=== PATIENT | female | born 1950 | race Caucasian/White ===

== ENCOUNTER 2018-12-27 06:43 | Day surgery (SDC) | payer MEDICARE ==
[~2018-12-27] VITALS: Ht 157.5 cm; Wt 73.8 kg
[~2018-12-27 06:43] MED LIST: ASPI81TA85 PO; DILT1CAP9 PO; FENO145T13 PO; LEVO50TA5 PO; LIDOCAINE 2% W/EPIN INJ 20ML **PRES FREE As Ordered ONE; LISI20TA PO; MAGN64TASA PO; METF10004 PO; METO1TAB33 PO; POVIDONE-IODINE 5% OPHTH PREP SOL 30ML As Ordered ONE; SIMV40TA2 PO; TETRACAINE 0.5% OPHTH SOLN 4ML As Ordered ONE; TOBRADEX OPHTH OINT 3.5 GM As Ordered ONE; ZYLO300T6 PO
[2018-12-27] MEDS ORDERED: LIDOCAINE 3.5 % 1ML OPHTH TOPICAL GEL OU ONE (07:00)
[2018-12-27] MEDS ORDERED: MIDAZOLAM INJ 2 MG/2 ML VIAL (J2250) As Ordered ONE (07:43)
[2018-12-27] MEDS ORDERED: fentaNYL 100 MCG/2 ML INJECTION (J3010) As Ordered ONE (07:43)
[2018-12-27] MEDS ORDERED: PROPOFOL 200 MG/20 ML VIAL As Ordered ONE (07:44)
[2018-12-27] MEDS ORDERED: ONDANSETRON 4MG/2ML VIAL (J2405) As Ordered ONE (08:19)
[2018-12-27 09:15] VITALS: BP 148/69
[2018-12-27] MEDS ORDERED: ACETAMINOPHEN TAB 650MG DOSE (2X325MG) PO PRN (09:15)
[2018-12-27] MEDS ORDERED: ONDANSETRON 4MG/2ML VIAL (J2405) IV PRN (09:15)
[2018-12-27] MEDS ORDERED: LR 1,000 ML IV SCH (09:15)
--- NOTE | 2018-12-27 10:25 | RO ---
DATE OF PROCEDURE: 12/27/2018 PREOPERATIVE DIAGNOSIS: Bilateral upper lid dermatochalasis. POSTOPERATIVE DIAGNOSIS: Bilateral upper lid dermatochalasis. PROCEDURE PERFORMED: Bilateral upper lid blepharoplasty. SURGEON: Jessica Shields MD ANIMAL CARE ATTENDANT: ANESTHESIA: DESCRIPTION OF PROCEDURE: Patient was prepped and draped in the usual fashion. The area of skin to be excised was marked with a skin scribe on each upper lid. The right upper lid was attended to first. 2% lidocaine with epinephrine was injected subcutaneously in the area, and then the cautery was used to make incision through the skin on a cut mode. Any bleeding was controlled with the cautery. The medial fat pad was opened up, and fat was easily expressed and removed. The lid was then closed. The wound was closed with a running #6-0 nylon suture. Identical procedure was done on the other side, on the opposite side. Patient tolerated the procedure well and went to recovery room in stable condition.
== END 2018-12-27 09:43 | disposition home or self-care (01) ==
LOC: M SDC 06:43
PROVIDERS: ATTEND Ophthalmology
DX: H02.834 Dermatochalasis of left upper eyelid (principal); H02.831 Dermatochalasis of right upper eyelid; I10 Essential (primary) hypertension; E03.9 Hypothyroidism, unspecified; E11.9 Type 2 diabetes mellitus without complications; I49.9 Cardiac arrhythmia, unspecified; E78.00 Pure hypercholesterolemia, unspecified; M12.9 Arthropathy, unspecified; Z88.2 Allergy status to sulfonamides; Z79.899 Other long term (current) drug therapy; Z79.82 Long term (current) use of aspirin; Z79.84 Long term (current) use of oral hypoglycemic drugs; Z90.710 Acquired absence of both cervix and uterus
CPT/HCPCS: 15823; 88302; J2250; J2405; J3010